=== PATIENT | female | born 1985 | race Caucasian/White ===

== ENCOUNTER 2017-12-30 05:52 | Day surgery (SDC) | payer BC ==
[2017-12-30] MEDS ORDERED: MIDAZOLAM 1 MG/ML 2 ML INJ ×2 (07:57→07:58)
[2017-12-30] MEDS ORDERED: FENTAnyl 50 MCG/ML VIAL (07:57)
== END 2017-12-30 09:02 | disposition home or self-care (01) ==
LOC: GIL 05:52
DX: K21.9 Gastro-esophageal reflux disease without esophagitis (principal); K29.60 Other gastritis without bleeding
CPT/HCPCS: 43239; 84703

== ENCOUNTER 2018-12-16 20:45 | Emergency (ER) | payer BC ==
[2018-12-17 00:49] LABS: URINE BLOOD (Dip) POC Trace-intact (NEGATIVE); URINE GLUCOSE (Dip) POC Negative (NEGATIVE); URINE KETONES (Dip) POC Negative (NEGATIVE); URINE LEUKOCYTE EST (Dip) POC Negative (NEGATIVE); URINE NITRITE (Dip) POC Negative (NEGATIVE); URINE TOTAL PROTEIN POC Negative (NEGATIVE)
[2018-12-17] MEDS: KETOROLAC 60 MG INJ IM (00:51)
== END 2018-12-17 02:52 | disposition home or self-care (01) ==
LOC: FTE 12-17 02:52
DX: M79.662 Pain in left lower leg (principal)
CPT/HCPCS: 81003; 81025; 93971; 96372; 99285-25